=== PATIENT | female | born 1965 | race African-American/Black ===

== ENCOUNTER 2025-11-12 02:11 | Emergency (ER) | payer BC ==
[~2025-11-12] VITALS: Ht 167.6 cm; Wt 60.0 kg
[2025-11-12 02:13] VITALS: TEMP 98.9; O2SAT 98
[2025-11-12] MEDS: ACETAMINOPHEN 325MG TABLET PO ONE (02:32)
[2025-11-12] MEDS: DEXAMETHASONE 10 MG/ML VIAL IM ONE (02:33)
[2025-11-12] MEDS ORDERED: ACET-2708 MT (03:41)
[2025-11-12] MEDS ORDERED: BACL-141 MT (03:41)
[2025-11-12] MEDS: LIDOCAINE 5% PATCH TOP SCH (03:50)
[2025-11-12 03:56] VITALS: BP 140/84; PULSE 85; RESP 14; O2SAT 98
== END 2025-11-12 04:08 | disposition home or self-care (01) ==
LOC: ER 02:32
DX: M54.2 Cervicalgia (principal); I10 Essential (primary) hypertension; Z88.0 Allergy status to penicillin
CPT/HCPCS: 99285; 72125; 96372; J1100